=== PATIENT | male | born 1965 ===

== ENCOUNTER 2021-12-16 13:56 | Emergency (ER) | payer BC ==
[2021-12-16] MEDS ORDERED: Ketorolac 30 MG/ML SDV IM ONE (14:11)
[2021-12-16] MEDS ORDERED: Acetaminophen 500 MG Tab PO ONE (14:12)
[2021-12-16] MEDS ORDERED: oxyCODONE 5 MG Tab PO ONE (14:41)
== END 2021-12-16 15:30 | disposition home or self-care (01) ==
LOC: DL.ED 13:56
DX: S22.42XA Multiple fractures of ribs, left side, initial encounter for closed fracture (principal); E10.9 Type 1 diabetes mellitus without complications; Z88.5 Allergy status to narcotic agent; W01.198A Fall on same level from slipping, tripping and stumbling with subsequent striking against other object, initial encounter
CPT/HCPCS: 71101; 96372; 99283; 99284; A9270